=== PATIENT | female | born 1940 | race Two or more races ===

== ENCOUNTER 2021-10-30 07:36 | Outpatient (CLI) | payer OTHER | END 2021-10-30 07:37 | disposition home or self-care (01) | LOC: NUCLEAR 07:36 | PROVIDERS: ATTEND Internal Medicine Cardiovascular Disease | DX: I20.9 Angina pectoris, unspecified (principal); I50.22 Chronic systolic (congestive) heart failure | CPT/HCPCS: 78452; 93017; A9500; J0153 ==

== ENCOUNTER 2021-11-05 07:53 | Outpatient (CLI) | payer OTHER | END 2021-11-05 07:54 | disposition home or self-care (01) | LOC: NUCLEAR 07:53 | DX: I73.9 Peripheral vascular disease, unspecified (principal) ==

== ENCOUNTER 2023-03-07 10:01 | Outpatient (CLI) | payer OTHER | END 2023-03-07 10:17 | disposition home or self-care (01) | LOC: RAD 10:01 | PROVIDERS: ATTEND Physical Medicine & Rehabilitation Sports Medicine | DX: M54.42 Lumbago with sciatica, left side (principal); M46.1 Sacroiliitis, not elsewhere classified; M62.830 Muscle spasm of back; M54.59 Other low back pain; M47.816 Spondylosis without myelopathy or radiculopathy, lumbar region ==